=== PATIENT | female | born 1955 | race Caucasian/White ===

== ENCOUNTER → 2020-07-24 | Outpatient (CLI) | payer BC, MEDICARE ==
[2020-07-24 13:05] LABS: Basophils % (A) 1 %; Eosinophils # (A) 0.2 k/uL (0-0.7); Eosinophils % (A) 3 %; HCT 42.6 % (34.0-46.0); HGB 13.7 gm/dL (11.4-16.0); Lymphocytes # (A) 1.9 k/uL (1.0-4.8); Lymphocytes % (A) 28 %; MCH 28.8 pg (25.0-35.0); MCHC 32.1 g/dL (31.0-37.0); MCV 89.8 fL (80.0-100.0); Mean Platelet Volume 7.6; Monocytes # (A) 0.3 k/uL (0-1.0); Monocytes % (A) 5 %; Neutrophils # (A) 4.2 k/uL (1.3-7.7); Neutrophils % (A) 62 %; Platelet Count 217 k/uL (150-450); RBC 4.74 m/uL (3.80-5.40); RDW 13.2 % (11.5-15.5); WBC 6.8 k/uL (3.8-10.6)
[2020-07-24 13:29] LABS: African American GFR (CKD) >90 (>60 ml/min/1.73 sqM); Anion Gap 4 mmol/L; Blood Urea Nitrogen 9 mg/dL (7-17); Calcium 9.6 mg/dL (8.4-10.2); Carbon Dioxide 30 mmol/L (22-30); Chloride 106 mmol/L (98-107); Glucose 92 mg/dL (74-99); Non-African American GFR(CKD) >90 (>60 ml/min/1.73 sqM); Potassium 4.9 mmol/L (3.5-5.1); Sodium 140 mmol/L (137-145)
== END | disposition home or self-care (01) ==
LOC: LABWHC1 11:42
PROVIDERS: ATTEND Urology
DX: Z01.818 Encounter for other preprocedural examination (principal); D49.4 Neoplasm of unspecified behavior of bladder; R53.83 Other fatigue
CPT/HCPCS: 36415; 80048; 85025; 93005

== ENCOUNTER 2020-07-30 06:48 | Day surgery (SDC) | payer BC, MEDICARE ==
[2020-07-24 14:58] VITALS: BMI 22.3
--- NOTE | 2020-07-28 18:50 | P.GSHP ---
History of Present Illness H&P Date: 07/28/20 Chief Complaint: Bladder tumor The patient is a 65-year-old white female who recently presented with gross painless hematuria. CT scan of the abdomen and pelvis shows a 3.7 cm left bladder wall mass, confirmed by cystoscopy. The mass has a papillary appearance and overlies the left ureteral orifice. She now comes for resection. - Genitourinary (Female) Genitourinary: Reports hematuria, Denies dysuria Past Medical History Past Medical History: Asthma, COPD Additional Past Medical History / Comment(s): Small Hiatal Hernia. "Extra tube on right kidney", hx kidney stones. Hx fractured humerus, no surgery. History of Any Multi-Drug Resistant Organisms: None Reported Past Surgical History: Appendectomy, Breast Surgery, Cholecystectomy, Hysterectomy, Orthopedic Surgery Additional Past Surgical History / Comment(s): Titanium implants on bottom jaw, left shoulder surgery, "has 1 ovary left", bilateral breast implants, bilateral Cataract surgery with lens implants. Past Anesthesia/Blood Transfusion Reactions: No Reported Reaction Past Psychological History: No Psychological Hx Reported Smoking Status: Current every day smoker Past Alcohol Use History: None Reported Additional Past Alcohol Use History / Comment(s): Has been smoking on and off since her 20's, smokes 1/2 PPD. Past Drug Use History: None Reported - Past Family History Mother Family Medical History: No Reported History Medications and Allergies Home Medications Medication Instructions Recorded Confirmed Type Aspirin [Adult Low Dose Aspirin EC] 81 mg PO DAILY 07/24/20 07/24/20 History Dulera (Unknown Dose) 1 - 2 puff INHALATION DIRECTED 07/24/20 07/24/20 History PRN Ipratropium/Albuterol Sulfate 1 - 2 puff INHALATION DIRECTED 07/24/20 07/24/20 History [Combivent Respimat Inhaler] PRN Multivitamins, Thera [Multivitamin 1 tab PO DAILY 07/24/20 07/24/20 History (formulary)] Allergies Allergy/AdvReac Type Severity Reaction Status Date / Time cortisone Allergy Unknown Verified 07/24/20 15:00 hydromorphone [From Dilaudid] Allergy Respiratory Verified 07/24/20 14:58 Depression Iodinated Contrast Media Allergy Anaphylaxis Verified 07/24/20 15:00 niacin Allergy Rash/Hives Verified 07/24/20 15:00 Mnbgusq-Bkh-Qub Reductase Allergy Unknown Verified 07/24/20 15:00 Inhibitor Surgical - Exam - General well developed, well nourished, no distress - Neck no masses, trachea midline - Respiratory normal respiratory effort - Abdomen Abdomen: soft, no masses, no guarding, no rigid, no rebound - Psychiatric oriented to time, oriented to person, oriented to place, speech is normal, memory intact Assessment and Plan (1) Neoplasm of unspecified behavior of bladder Status: Acute Code(s): D49.4 - NEOPLASM OF UNSPECIFIED BEHAVIOR OF BLADDER SNOMED Code(s): 118706370 Plan: Cystoscopy, transurethral resection of bladder tumor. The procedure has been reviewed in detail with the patient. She has been made aware of potential risks, which include anesthesia, bleeding, infection, and bladder perforation. The importance of smoking cessation has been stressed.
[~2020-07-30 06:48] MED LIST: DEXAMETHASONE SOD PHOSPHATE 4 MG/ML 1 ML VIAL IV ONE; LACTATED RINGERS 1,000 ML IV SCH; LIDOCAINE 1% (10MG/ML) FOR IV START INTRADERMA PRN; ONDANSETRON 4 MG/2 ML VIAL IVP ONE
[2020-07-30] MEDS ORDERED: MIDAZOLAM 2 MG/2 ML VIAL IV ONE (07:45)
[2020-07-30] MEDS ORDERED: NEOSTIGMINE 1 MG/ML 10 ML VIAL ONE (08:44)
[2020-07-30] MEDS ORDERED: ePHEDrine SULFATE/0.9% NACL/PF 50 MG/5 ML SYRINGE IV ONE (08:44)
[2020-07-30] MEDS ORDERED: GLYCOPYRROLATE 0.2 MG/ML 2 ML VIAL ONE (08:44)
[2020-07-30] MEDS ORDERED: PROPOFOL 10 MG/ML 20 ML VIAL IV ONE (08:44)
[2020-07-30] MEDS ORDERED: fentaNYL (PF) 50 MCG/ML 2 ML AMP ONE (08:44)
[2020-07-30] MEDS ORDERED: ROCURONIUM 10 MG/ML (5 ML VIAL) IV ONE (08:44)
[2020-07-30] MEDS ORDERED: MIDAZOLAM 2 MG/2 ML VIAL ONE (08:44)
[2020-07-30] MEDS ORDERED: SUCCINYLCHOLINE CHLORIDE 100 MG/5 ML SYR IV ONE (08:44)
[2020-07-30] MEDS ORDERED: LACTATED RINGERS 1,000 ML IV ONE ×2 (10:08)
--- NOTE | 2020-07-30 10:11 | P.OP ---
Date of Procedure: 07/30/20 Preoperative Diagnosis: Bladder tumor Postoperative Diagnosis: Same Procedure(s) Performed: Cystoscopy, TURBT (medium) Anesthesia: ROBERT Surgeon: Tc Diego Estimated Blood Loss (ml): 30 IV fluids (ml): 700 Pathology: other (Bladder tumor fragments) Condition: stable Disposition: PACU Indications for Procedure: The patient is a 65-year-old white female who recently presented with gross painless hematuria. CT scan of the abdomen and pelvis shows a 3.7 cm left bladder wall mass, confirmed by cystoscopy. The mass has a papillary appearance and overlies the left ureteral orifice. She now comes for resection. Operative Findings: 3-4 cm papillary tumor arising from left posterolateral bladder wall, lateral to the left ureteral orifice. Description of Procedure: The patient was taken in the operating room and placed in the dorsal lithotomy position, with his legs supported in Duran stirrups. The external genitalia was prepped and draped sterilely. The 25-[place] [employer] resectoscope sheath was introduced into the bladder. The bladder was inspected. The right ureteral orifice appeared normal, and clear urine effluxed from both. The entire bladder was examined, revealing a 3-4 cm papillary tumor arising from the left posterior lateral bladder wall. The left ureteral orifice was not identified. The remainder the bladder appeared normal.. Using the cutting loop, the tumor was resected down to the muscle. Excellent hemostasis was attained. Following resection, the left ureteral orifice was identified just medial to the resection bed. The ureteral orifice was not resected. The resected tissue was saved and sent for pathologic examination. An 18-[place] Ingram catheter was inserted. The return was clear. The patient tolerated the procedure well. He was taken to [facility] recovery room in stable condition.
[2020-07-30 10:21] VITALS: TEMP 96.9
[2020-07-30 10:25] VITALS: RESP 16
[2020-07-30 12:04] VITALS: BP 131/77; PULSE 81
== END 2020-07-30 12:23 | disposition home or self-care (01) ==
LOC: OR 06:48
PROVIDERS: ATTEND Urology
DX: C67.2 Malignant neoplasm of lateral wall of bladder (principal); J44.9 Chronic obstructive pulmonary disease, unspecified; K44.9 Diaphragmatic hernia without obstruction or gangrene; Z87.442 Personal history of urinary calculi; Q63.8 Other specified congenital malformations of kidney; Z90.89 Acquired absence of other organs; Z98.890 Other specified postprocedural states; Z90.49 Acquired absence of other specified parts of digestive tract; Z90.710 Acquired absence of both cervix and uterus; Z98.42 Cataract extraction status, left eye; Z98.41 Cataract extraction status, right eye; Z96.1 Presence of intraocular lens; Z97.2 Presence of dental prosthetic device (complete) (partial); F17.210 Nicotine dependence, cigarettes, uncomplicated; Z79.82 Long term (current) use of aspirin; Z88.5 Allergy status to narcotic agent; Z88.8 Allergy status to other drugs, medicaments and biological substances; Z91.041 Radiographic dye allergy status
CPT/HCPCS: 52235; 88307; J2250; J1100; J2710; J2405; J0690; J3010; J0330; J2704

== ENCOUNTER → 2023-02-14 | Outpatient (CLI) | payer MEDICARE, BC ==
--- NOTE | 2023-02-17 15:22 | CT ---
EXAMINATION TYPE: CT abdomen pelvis wo con DATE OF EXAM: 02/14/2023 COMPARISON: None HISTORY: 67-year-old female C67.2, bladder ca CT DLP: 621 mGycm. Automated exposure control for dose reduction was used. TECHNIQUE: Contiguous axial scanning of the abdomen and pelvis without IV contrast. Coronal and sagit jimy reconstructions performed. FINDINGS: Heart normal size without pericardial effusion. Strandy atelectasis or scarring in the lower lungs. Tiny hiatal hernia. Moderate atherosclerotic calcification throughout the abdominal aorta and iliac arteries. Fusiform ectasia mid abdominal aorta up to 2.6 cm in fusiform dilatation distal abdominal aorta 2.3 c m. Extensive atherosclerotic calcifications throughout the iliac arteries with possible moderate to s evere segmental stenoses. Noncontrast appearance of the liver, adrenal glands, kidneys, atrophic pancreas show no gross body. Cholecystectomy clips. Numerous small calcified granulomas within the spleen. No dilated small bowel, free fluid, or free air. No mesenteric or retroperitoneal lymph adenopathy. Surgical material inferior cecum suggest prior appendectomy. Left-sided colonic diverticulosis without pericolonic inflammatory change. Bladder is collapsed limiting its evaluation. Uterus surgically absent. Neither ovary is identified. Bones: Mild degenerative changes throughout the lumbar spine. Bulging disc and ligamentum flavum thic kening at L2-L3 and L4-L5 mildly narrowing the spinal canal. IMPRESSION: 1. Bladder is collapsed limiting its evaluation. No suspicious lymphadenopathy clearly identified. 2. Tiny hiatal hernia and left-sided colonic diverticulosis. Evidence of prior granulomatous disease . 3. Atherosclerotic calcifications abdominal aorta and iliac arteries with possible moderate to sever e segmental stenoses in the iliac arteries. Fusiform ectasia mid abdominal aorta at 2.6 cm.
== END | disposition home or self-care (01) ==
LOC: RADCTMAIN 13:47
PROVIDERS: ATTEND Urology
DX: C67.2 Malignant neoplasm of lateral wall of bladder (principal); K44.9 Diaphragmatic hernia without obstruction or gangrene; K57.30 Diverticulosis of large intestine without perforation or abscess without bleeding; I70.8 Atherosclerosis of other arteries; I70.0 Atherosclerosis of aorta
CPT/HCPCS: 74176